=== PATIENT | female | born 1985 | race Caucasian/White ===

== ENCOUNTER 2019-04-09 20:53 | Emergency (ER) | payer OTHER, SELFPAY ==
[2019-04-09] MEDS ORDERED: Metoclopramide HCl 10 MG/2 ML VIAL ONE (21:56)
[2019-04-09] MEDS ORDERED: diphenhydrAMINE 50 MG/ML VIAL ONE (21:56)
[2019-04-09] MEDS ORDERED: Sodium Chloride 0.9% 1,000 ML ONE (21:56)
[2019-04-09] MEDS ORDERED: Ketorolac Tromethamine 30 MG/ML VIAL ONE (22:38)
== END 2019-04-09 23:18 | disposition home or self-care (01) ==
LOC: NAV ERS 20:53
DX: G43.909 Migraine, unspecified, not intractable, without status migrainosus (principal); F41.9 Anxiety disorder, unspecified; F43.10 Post-traumatic stress disorder, unspecified
CPT/HCPCS: 96361; 96374; 96375; J1200; J1885; J2765; J7050